=== PATIENT | female | born 1960 | race Caucasian/White ===

== ENCOUNTER 2017-09-14 17:03 | Emergency (ER) | payer OTHER ==
[~2017-09-14] VITALS: Ht 165.1 cm; Wt 63.5 kg
[~2017-09-14 17:03] MED LIST: ALPRAZOLAM 0.50.5 M1 PO; ASPIRIN EC81 M1 PO; HYDROCODON-ACE1 EAC8 PO; LEVOTHYROXINE0.05 MG PO; MULTIVITAMINS1 EAC7 PO; OMEGA-31000 M1 PO; ZANTAC 150MG T150 M1 PO
[2017-09-14] MEDS ORDERED: LOPRESSOR25 PO (18:11)
[2017-09-14] MEDS ORDERED: PRILOSEC 10MG C10 MG PO (18:11)
[2017-09-14] MEDS ORDERED: PREDNISONE 20 M20 MG PO (20:02)
[2017-09-14] MEDS ORDERED: PROAIR HFA8.5 GM INH (20:02)
[2017-09-14 20:14] VITALS: BP 127/87
== END 2017-09-14 20:16 | disposition home or self-care (01) ==
LOC: ER 17:03
DX: R06.00 Dyspnea, unspecified (principal); F17.210 Nicotine dependence, cigarettes, uncomplicated; Z90.710 Acquired absence of both cervix and uterus; Z88.1 Allergy status to other antibiotic agents

== ENCOUNTER 2017-12-04 14:00 | Emergency (ER) | payer OTHER ==
[~2017-12-04] VITALS: Ht 165.1 cm; Wt 65.8 kg
[~2017-12-04 14:00] MED LIST changes: +LOPRESSOR25 PO; +PREDNISONE 20 M20 MG PO; +PRILOSEC 10MG C10 MG PO; +PROAIR HFA8.5 GM INH
[2017-12-04] MEDS ORDERED: TRAMADOL 50 MG50 MG PO (15:16)
[2017-12-04] MEDS ORDERED: CLOTRIMAZOLE 1%15 G1 TOP (15:24)
[2017-12-04 15:32] VITALS: BP 116/87
== END 2017-12-04 15:33 | disposition home or self-care (01) ==
LOC: ER 14:00
DX: B35.3 Tinea pedis (principal); F17.210 Nicotine dependence, cigarettes, uncomplicated; Z88.1 Allergy status to other antibiotic agents; Z90.49 Acquired absence of other specified parts of digestive tract; Z90.710 Acquired absence of both cervix and uterus

== ENCOUNTER 2020-03-13 17:26 | Emergency (ER) | payer OTHER ==
[~2020-03-13] VITALS: Ht 165.1 cm; Wt 63.5 kg
[~2020-03-13 17:26] MED LIST changes: +CLOTRIMAZOLE 1%15 G1 TOP; +TRAMADOL 50 MG50 MG PO
[2020-03-13] MEDS ORDERED: MIRALAX17 G1 PO (22:05)
[2020-03-13 22:32] VITALS: BP 144/84
== END 2020-03-13 22:35 | disposition left against medical advice (07) ==
LOC: ER 17:26
DX: K59.00 Constipation, unspecified (principal); F17.210 Nicotine dependence, cigarettes, uncomplicated; Z90.710 Acquired absence of both cervix and uterus; Z79.899 Other long term (current) drug therapy; Z79.82 Long term (current) use of aspirin; Z88.1 Allergy status to other antibiotic agents; Z88.2 Allergy status to sulfonamides